=== PATIENT | female | born 1975 | race Caucasian/White ===

== ENCOUNTER → 2016-06-11 | Outpatient (CLI) | payer OTHER ==
[2016-06-11 13:06] LABS: HEMATOCRIT 44.2 % (36.0-47.0); HEMOGLOBIN 15.2 g/dL (12.0-15.5); HGB HCT DIFFERENCE 1.4; MEAN CORPUSCULAR HEMOGLOBIN 34.7 pg (27.0-33.4); MEAN CORPUSCULAR HGB CONC 34.3 g/dL (32.0-36.0); MEAN CORPUSCULAR VOLUME 101 fl (80-97); RED BLOOD COUNT 4.37 10^6/uL (3.72-5.28); RED CELL DISTRIBUTION WIDTH 14.1 % (11.5-14.0); WHITE BLOOD COUNT 7.7 10^3/uL (4.0-10.5)
[2016-06-11 13:10] LABS: APPEARANCE,URINE CLEAR; BILIRUBIN,URINE NEGATIVE (NEGATIVE); GLUCOSE, URINE NEGATIVE (NEGATIVE); KETONES,URINE NEGATIVE (NEGATIVE); LEUKOCYTE ESTERASE,URINE NEGATIVE (NEGATIVE); NITRITE,URINE NEGATIVE (NEGATIVE); PROTEIN,URINE NEGATIVE (NEGATIVE); URINE SPECIFIC GRAVITY 1.004; UROBILINOGEN,URINE NEGATIVE mg/dL (<2.0)
[2016-06-11 13:28] LABS: ANION GAP 11 (5-19); BLOOD UREA NITROGEN 9 mg/dL (7-20); CALCIUM 9.9 mg/dL (8.4-10.2); CARBON DIOXIDE 25 mmol/L (22-30); CHLORIDE 105 mmol/L (98-107); CREATININE RESULT 0.83 mg/dL (0.52-1.25); GLUCOSE 108 mg/dL (75-110); POTASSIUM 5.1 mmol/L (3.6-5.0); SODIUM 140.9 mmol/L (137-145)
--- NOTE | 2016-06-11 21:42 | EKG REPORT ---
SEVERITY:- NORMAL ECG - SINUS RHYTHM : Confirmed by: Anisa Chris 11-Jun-2016 21:42:12
== END ==
LOC: OD 12:26
PROVIDERS: ATTEND Orthopaedic Surgery
DX: Z01.818 Encounter for other preprocedural examination (principal); Z01.811 Encounter for preprocedural respiratory examination; M17.11 Unilateral primary osteoarthritis, right knee; Z79.899 Other long term (current) drug therapy
CPT/HCPCS: 36415; 71020; 80048; 81001; 85027; 93005; 93010

== ENCOUNTER 2016-07-07 08:02 | Inpatient (IN) | payer OTHER ==
[~2016-07-07 08:02] MED LIST: BUPIVACAINE INJ/PF LIPOSOME/PF 266 MG/20 ML SDV IJ PRN; CEFAZOLIN INJ 1 GM VIAL IV PRN; IBUPROFEN 800 MG/NS 250 ML IV PRN; LACTATED RINGERS 1000 ML IV PRN; LANSOPRAZOLE 15 MG TAB.RAP.DR PO PRN; LIDOCAINE 0.5% INJ-PF (5 MG/ML) 50 ML SDV SUBCUT PRN; OXYCODONE HCL SR 10 MG TABLET PO PRN; SCOPOLAMINE HYDROBROMIDE 1.5 MG PATCH.TD72 TOP PRN; VANCOMYCIN HCL 1,000 MG in DEXTROSE 5%-WATER 250 ML IV PRN
[2016-07-07] MEDS ORDERED: BUPIVACAINE INJ/PF LIPOSOME/PF 266 MG/20 ML SDV ONE (08:24)
[2016-07-07] MEDS ORDERED: THROMBIN (BOVINE) TOPICAL 20000 UNIT VIAL ONE (08:24)
[2016-07-07] MEDS ORDERED: THROMBIN (BOVINE) 5000 UNIT EPITAXIS KIT ONE (08:24)
[2016-07-07 08:50] LABS: PROTHROMBIN TIME 11.8 SEC (11.4-15.4)
[2016-07-07] MEDS ORDERED: DEXMEDETOMIDINE INJ 80 MCG/20 ML VIAL IV ONE (09:07)
[2016-07-07] MEDS ORDERED: TRANEXAMIC ACID INJ/PF 1,000 MG/10 ML SDV IV ONE (09:07)
[2016-07-07] MEDS ORDERED: FENTANYL CITRATE INJ/PF 100 MCG/2 ML AMPUL ONE (09:07)
[2016-07-07] MEDS ORDERED: MIDAZOLAM 2 MG/2 ML INJ ONE ×2 (09:07→10:27)
[2016-07-07] MEDS ORDERED: PROPOFOL INJ 200 MG/20 ML VIAL IV ONE (09:07)
[2016-07-07] MEDS ORDERED: PROMETHAZINE HCL INJ 25 MG/1 ML VIAL IV PRN ×2 (11:14)
[2016-07-07] MEDS ORDERED: OXYCODONE-ACETAMINOPHEN 5-325 MG TABLET PO PRN ×2 (11:14)
[2016-07-07] MEDS ORDERED: DIPHENHYDRAMINE HCL 50 MG/ML VIAL IV PRN (11:14)
[2016-07-07] MEDS ORDERED: MORPHINE SULFATE 10 MG/ML INJ IV PRN ×3 (11:14→12:07)
[2016-07-07] MEDS ORDERED: FENTANYL CITRATE INJ/PF 100 MCG/2 ML AMPUL IV PRN ×3 (11:14)
[2016-07-07] MEDS ORDERED: MEPERIDINE HCL/PF INJ 25 MG/1 ML DISP.SYRIN IV PRN (11:14)
[2016-07-07] MEDS ORDERED: ONDANSETRON HCL INJ/PF 4 MG/2 ML SDV IV PRN ×2 (11:14→12:07)
[2016-07-07] MEDS ORDERED: LORAZEPAM 1 MG TABLET PO PRN (12:05)
--- NOTE | 2016-07-07 12:05 | Operative Report ---
Operative Report DATE OF SURGERY: 07/07/16 PREOPERATIVE DIAGNOSIS: Right knee arthritis OPERATION: Right knee arthroplasty SURGEON: BLANCA JAMES ANESTHESIA: Spinal TISSUE REMOVED OR ALTERED: Bone to pathology ESTIMATED BLOOD LOSS: 100 PROCEDURE: Implants used: Femur: Striker triathlon #5 CR femur Tibia:, 4 tibia Tibial liner:, 11 millimeters CS insert Patella:, 32 mm oval patella Procedure with the patient supine on the operating table the right the limb is prepped and draped in a sterile fashion. The limb was elevated for exsanguination and the tourniquet inflated to 280 torr. A standard midline median parapatellar approach the knee is taken. Access is gained to the femoral canal through the intercondylar notch. Intramedullary alignment instrumentation used to resect 10 mm of distal femur in 5 of valgus. Sizing guide indicated a size 5 femur. Appropriate cutting jig is then used to fashion anterior posterior and chamfer cuts. A trial reduction femurs performed and this is judged to be adequate. Attention was next turned to the tibia. Using an extra medullary alignment system 9 millimeters was resected off the lateral tibial plateau. This is sized to a size for tibia. A trial reduction was now performed with a 5 femur and a 4 tibia using a 11 millimeters spacer. It is full extension and central patellofemoral tracking. The articular surface the patella was next resected using an oscillating saw. All trial implants were removed. Polymethylmethacrylate is mixed and used to cement the above implants in place. On adequate curing the cement excess cement was removed the tourniquet was deflated hemostasis obtained the wound is then closed in layers using interrupted Vicryl followed by fifi. A sterile compressive dressing was applied and the patient returned to recovery room in satisfactory condition.
[2016-07-07] MEDS ORDERED: ZOLPIDEM TARTRATE 5 MG TABLET PO PRN (12:07)
[2016-07-07] MEDS ORDERED: ONDANSETRON 4 MG TAB.RAPDIS PO PRN (12:07)
[2016-07-07] MEDS ORDERED: MAG HYDROX/AL HYDROX/SIMETH SUSP 30 ML UDCUP PO PRN (12:07)
[2016-07-07] MEDS ORDERED: MORPHINE SULFATE 10 MG/ML INJ IM PRN (12:07)
[2016-07-07] MEDS ORDERED: RINGERS SOLUTION,LACTATED 1,000 ML IV PRN (12:07)
[2016-07-07] MEDS ORDERED: ACETAMINOPHEN 325 MG TABLET PO PRN (12:07)
[2016-07-07] MEDS ORDERED: LIDOCAINE 2% INJ-PF (20 MG/ML) 10 ML AMPUL ONE (13:29)
[2016-07-07] MEDS ORDERED: GLYCOPYRROLATE INJ 0.4 MG/2 ML VIAL ONE (13:29)
[2016-07-07] MEDS ORDERED: ENOXAPARIN SODIUM INJ 120 MG/0.8 ML DISP.SYRIN SUBCUT ONE (14:00)
[2016-07-07] MEDS ORDERED: IBUPROFEN 800 MG in NORMAL SALINE 250 ML IV SCH (14:00)
[2016-07-07] MEDS ORDERED: PRENATAL VITAMIN W-O CA NO5/FE FUMARATE/FA CAPSULE PO ONE (14:00)
[2016-07-07] MEDS: OXYCODONE HCL IR 5 MG TABLET PO PRN (15:46)
[2016-07-07] MEDS: MORPHINE SULFATE 10 MG/ML INJ IV PRN ×5 (16:58→23:37)
[2016-07-07] MEDS: SERTRALINE HCL 50 MG TABLET PO SCH (17:10)
[2016-07-07] MEDS: LAMOTRIGINE 100 MG TABLET PO SCH (17:10)
[2016-07-07] MEDS: SENNOSIDES/DOCUSATE 8.6-50 MG 1 EACH TABLET PO SCH (17:11)
[2016-07-07] MEDS: IBUPROFEN 800 MG in NORMAL SALINE 250 ML IV SCH (17:11)
[2016-07-07] MEDS: CETIRIZINE 10 MG TABLET PO SCH (17:11)
[2016-07-07] MEDS ORDERED: (PENDING PHARMACY ID) (Lamotrigine [Lamictal] 200 MG) PO SCH (18:00)
[2016-07-07] MEDS: WARFARIN SODIUM 4 MG TABLET PO SCH (21:58)
[2016-07-07] MEDS ORDERED: ENOXAPARIN SODIUM INJ 120 MG/0.8 ML DISP.SYRIN SUBCUT SCH (22:00)
[2016-07-07] MEDS ORDERED: ENOXAPARIN SODIUM 120 MG SUBCUT SCH (22:00)
[2016-07-07] MEDS ORDERED: OXYCODONE HCL SR 10 MG TABLET PO SCH (22:00)
[2016-07-08] MEDS ORDERED: VANCOMYCIN HCL 1,000 MG in DEXTROSE 5%-WATER 250 ML IV ONE (00:07)
[2016-07-08] MEDS: IBUPROFEN 800 MG in NORMAL SALINE 250 ML IV SCH ×3 (01:23→18:57)
[2016-07-08] MEDS: MORPHINE SULFATE 10 MG/ML INJ IV PRN ×2 (01:26→03:03)
[2016-07-08] MEDS: DIPHENHYDRAMINE HCL 50 MG/ML VIAL IV PRN ×3 (03:03→21:48)
[2016-07-08] MEDS: ENOXAPARIN SODIUM INJ 120 MG/0.8 ML DISP.SYRIN SUBCUT SCH ×2 (06:00→19:02)
[2016-07-08] MEDS: LANSOPRAZOLE 30 MG TAB.RAP.DR PO SCH (06:00)
[2016-07-08 06:34] LABS: HEMATOCRIT 35.8 % (36.0-47.0); HEMOGLOBIN 12.4 g/dL (12.0-15.5); HGB HCT DIFFERENCE 1.4; MEAN CORPUSCULAR HEMOGLOBIN 34.5 pg (27.0-33.4); MEAN CORPUSCULAR HGB CONC 34.5 g/dL (32.0-36.0); MEAN CORPUSCULAR VOLUME 100 fl (80-97); RED BLOOD COUNT 3.58 10^6/uL (3.72-5.28); RED CELL DISTRIBUTION WIDTH 13.6 % (11.5-14.0); WHITE BLOOD COUNT 9.8 10^3/uL (4.0-10.5)
[2016-07-08 06:40] LABS: PROTHROMBIN TIME 12.6 SEC (11.4-15.4)
[2016-07-08 06:41] LABS: PARTIAL THROMBOPLASTIN TIME 32.4 SEC (23.5-35.8)
[2016-07-08 06:53] LABS: ANION GAP 9 (5-19); BLOOD UREA NITROGEN 8 mg/dL (7-20); CARBON DIOXIDE 25 mmol/L (22-30); CHLORIDE 100 mmol/L (98-107); CREATININE RESULT 0.63 mg/dL (0.52-1.25); GLUCOSE 103 mg/dL (75-110); POTASSIUM 4.3 mmol/L (3.6-5.0); SODIUM 133.7 mmol/L (137-145)
[2016-07-08] MEDS: OXYCODONE HCL SR 40 MG TABLET PO SCH ×2 (09:55→21:48)
[2016-07-08] MEDS: SENNOSIDES/DOCUSATE 8.6-50 MG 1 EACH TABLET PO SCH ×2 (09:56→19:01)
[2016-07-08] MEDS: PRENATAL VITAMIN W-O CA NO5/FE FUMARATE/FA CAPSULE PO SCH (09:56)
[2016-07-08] MEDS ORDERED: (PENDING PHARMACY ID) (Warfarin Sodium 4 MG) PO SCH (10:00)
[2016-07-08] MEDS: OXYCODONE HCL IR 5 MG TABLET PO PRN (14:41)
[2016-07-08] MEDS: SERTRALINE HCL 50 MG TABLET PO SCH (18:56)
[2016-07-08] MEDS: LAMOTRIGINE 100 MG TABLET PO SCH (18:56)
[2016-07-08] MEDS: CETIRIZINE 10 MG TABLET PO SCH (18:57)
[2016-07-08] MEDS: WARFARIN SODIUM 4 MG TABLET PO SCH (21:48)
[2016-07-09] MEDS: IBUPROFEN 800 MG in NORMAL SALINE 250 ML IV SCH ×2 (03:27→09:43)
[2016-07-09 05:41] LABS: HEMATOCRIT 35.2 % (36.0-47.0); HEMOGLOBIN 11.9 g/dL (12.0-15.5); HGB HCT DIFFERENCE 0.5; MEAN CORPUSCULAR HEMOGLOBIN 34.3 pg (27.0-33.4); MEAN CORPUSCULAR HGB CONC 33.7 g/dL (32.0-36.0); MEAN CORPUSCULAR VOLUME 102 fl (80-97); RED BLOOD COUNT 3.46 10^6/uL (3.72-5.28); RED CELL DISTRIBUTION WIDTH 13.7 % (11.5-14.0); WHITE BLOOD COUNT 9.8 10^3/uL (4.0-10.5)
[2016-07-09 05:46] LABS: PROTHROMBIN TIME 14.2 SEC (11.4-15.4)
[2016-07-09 05:47] LABS: PARTIAL THROMBOPLASTIN TIME 38.2 SEC (23.5-35.8)
[2016-07-09] MEDS: ENOXAPARIN SODIUM INJ 120 MG/0.8 ML DISP.SYRIN SUBCUT SCH (06:06)
[2016-07-09] MEDS: LANSOPRAZOLE 30 MG TAB.RAP.DR PO SCH (06:06)
[2016-07-09] MEDS: OXYCODONE HCL IR 5 MG TABLET PO PRN (06:07)
[2016-07-09] MEDS: DIPHENHYDRAMINE HCL 50 MG/ML VIAL IV PRN (06:21)
--- NOTE | 2016-07-09 07:20 | PDOC DISCHARGE SUMMARY ---
General - Admit/Disc Date/PCP Admission Date/Primary Care Provider: 07/07/16 08:02 KENDAL WEINBERG MD Discharge Date: 07/09/16 - Discharge Diagnosis (1) Arthritis of right knee Is this a current diagnosis for this admission?: Yes - Additional Information Resuscitation Status: Full Code Discharge Diet: As Tolerated, Regular Discharge Activity: Activity As Tolerated, Balance Activity w/Rest Home Medications: Sertraline HCl [Zoloft 50 mg Tablet] 100 mg PO QPM 12/17/11 Cetirizine HCl [Zyrtec 10 mg Tablet] 1 tab PO QPM 06/13/14 Warfarin Sodium 4 - 5 mg PO DAILY 06/13/14 Ibuprofen [Motrin 600 mg Tablet] 600 mg PO Q8HP PRN 06/14/14 Diclofenac Sodium [Pennsaid] 112 gm TP QPM 06/25/16 Lamotrigine [Lamictal] 200 mg PO QPM 06/25/16 Lorazepam [Ativan 1 mg Tablet] 1 mg PO ASDIR PRN 06/25/16 Tramadol HCl 50 mg PO QPM PRN 06/25/16 Enoxaparin Sodium [Lovenox Inj 120 mg/0.8 ml Disp.syrin] 120 mg SUBCUT Q12 07/01 Acetaminophen [Tylenol 325 mg Tablet] 650 mg PO Q4HP PRN #0 tablet 07/09/16 Oxycodone HCl [Oxy-Ir 5 mg Tablet] 5 mg PO Q6HP PRN #0 tablet 07/09/16 Pnv W-O Ca No5/Fe Fumarate/FA [-U Multiple Vitamin Capsule] 1 cap PO DAILY #0 capsule 07/09/16 History of Present Illness History of Present Illness: MACEY FUENTES is a 40 year old female who presented with progressive bilateral knee pain and functional disability. Osteoarthritis. Right knee was more affected than the left. She is now admitted for elective right knee arthroplasty Hospital Course Hospital Course: Patient's admitted through the operating room where she undergoes uncomplicated right knee arthroplasty. 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 She has a slow start with physical therapy because of pain control. By postop day 2. The pain control seems to be better. She is making excellent progress with physical therapy. The shawn dressing is changed. Physical Exam Vital Signs: Temp Pulse Resp BP Pulse Ox 37.1 C 77 19 113/69 96 07/08/16 23:00 07/08/16 23:00 07/08/16 23:00 07/08/16 23:00 07/08/16 23:00 Intake & Output 07/08/16 07/09/16 07/10/16 06:59 06:59 06:59 Intake Total 5018 2130 Output Total 3450 1000 Balance 1568 1130 General appearance: PRESENT: no acute distress, obese Head exam: PRESENT: normocephalic Eye exam: PRESENT: EOMI Respiratory exam: PRESENT: unlabored Cardiovascular exam: PRESENT: RRR Pulses: PRESENT: +1 pedal pulses bilateral Vascular exam: PRESENT: normal capillary refill GI/Abdominal exam: PRESENT: soft Rectal exam: PRESENT: deferred Extremities exam: PRESENT: other - Right knee incision is well approximated. There is no erythema. There is no drainage. Distal neurovascular examination is intact. Neurological exam: PRESENT: alert, awake, oriented to person, oriented to place , oriented to time, oriented to situation. ABSENT: motor sensory deficit Psychiatric exam: PRESENT: appropriate affect, normal mood. ABSENT: homicidal ideation, suicidal ideation Skin exam: PRESENT: dry, intact, warm. ABSENT: cyanosis, rash Results Laboratory Results: 07/09/16 05:13 07/08/16 05:50 07/09/16 05:13 WBC 9.8 RBC 3.46 L Hgb 11.9 L Hct 35.2 L MCV 102 H MCH 34.3 H MCHC 33.7 RDW 13.7 Plt Count 166 Impressions: Knee X-Ray 07/07/16 12:08 IMPRESSION: SATISFACTORY POSTOPERATIVE RIGHT KNEE. Status: Imported from PACS Plan Discharge Plan: Patient be discharged home with home health senior living health physical therapy , we'll Walker, bedside commode. Patient will follow Dr. Fitzgerald for the transition between Lovenox and Coumadin. Patient will have the shawn dressing changed on Thursday the by home health nursing. Follow-up will be with Dr. Arreola in the [facility] for surgery in 2 weeks for staple removal.
[2016-07-09] MEDS: OXYCODONE HCL SR 40 MG TABLET PO SCH (09:42)
[2016-07-09] MEDS: SENNOSIDES/DOCUSATE 8.6-50 MG 1 EACH TABLET PO SCH (09:42)
[2016-07-09] MEDS: PRENATAL VITAMIN W-O CA NO5/FE FUMARATE/FA CAPSULE PO SCH (09:42)
[2016-07-09 10:39] VITALS: BP 113/69
== END 2016-07-09 12:30 | disposition home health service (06) | DRG 470 ==
LOC: INOR 08:02 → 4S 13:27
PROVIDERS: ADMIT Orthopaedic Surgery; ATTEND Orthopaedic Surgery
PROC: 0SRC0J9 Replacement of Right Knee Joint with Synthetic Substitute, Cemented, Open Approach (ICD-10-PCS; principal; 2016-07-07 10:00)
DX: M17.11 Unilateral primary osteoarthritis, right knee (principal); D68.59 Other primary thrombophilia; F41.9 Anxiety disorder, unspecified; D50.9 Iron deficiency anemia, unspecified; D51.9 Vitamin B12 deficiency anemia, unspecified; F17.200 Nicotine dependence, unspecified, uncomplicated; Z86.711 Personal history of pulmonary embolism; Z79.899 Other long term (current) drug therapy; Z90.710 Acquired absence of both cervix and uterus; Z98.84 Bariatric surgery status; Z82.49 Family history of ischemic heart disease and other diseases of the circulatory system; Z79.01 Long term (current) use of anticoagulants; Z80.3 Family history of malignant neoplasm of breast; Z90.49 Acquired absence of other specified parts of digestive tract; Z98.51 Tubal ligation status
CPT/HCPCS: 01402; 36415; 80048; 85027; 85610; 85730; 88305; 88311; 94799; C9290; J0690; J1200; J1650; J1741; J2250; J2270; J2405; J2704; J3010; J3370; J3490; J7050; J7060

== ENCOUNTER → 2016-09-01 | Outpatient (CLI) | payer OTHER | LOC: WI 09:24 | PROVIDERS: ATTEND Surgery | DX: Z12.31 Encounter for screening mammogram for malignant neoplasm of breast (principal) | CPT/HCPCS: 77067; G0202 ==

== ENCOUNTER → 2016-10-16 | Outpatient (CLI) | payer OTHER ==
--- NOTE | 2016-10-16 11:45 | RADIOLOGY REPORT (SQ) ---
EXAM DESCRIPTION: CHEST PA/LATERAL COMPLETED DATE/TIME: 10/16/2016 11:31 am REASON FOR STUDY: PRE OP COMPARISON: CT chest 08/10/2014 EXAM PARAMETERS: NUMBER OF VIEWS: two views TECHNIQUE: Digital Frontal and Lateral radiographic views of the chest acquired. RADIATION DOSE: NA LIMITATIONS: none FINDINGS: LUNGS AND PLEURA: No opacities, masses or pneumothorax. No pleural effusion. MEDIASTINUM AND HILAR STRUCTURES: No masses or contour abnormalities. HEART AND VASCULAR STRUCTURES: Heart normal size. No evidence for failure. BONES: No acute findings. HARDWARE: Clips right upper quadrant post cholecystectomy. Left upper quadrant clips post gastric by pass OTHER: No other significant finding. IMPRESSION: NO SIGNIFICANT RADIOGRAPHIC FINDING IN THE CHEST. TECHNICAL DOCUMENTATION: JOB ID: [id number] [employer]- All Rights Reserved
[2016-10-16 11:48] LABS: ABSOLUTE BASOPHILS # (AUTO) 0.1 10^3/uL (0.0-0.2); ABSOLUTE EOSINOPHILS # (AUTO) 0.3 10^3/uL (0.0-0.6); ABSOLUTE LYMPHOCYTES (AUTO) 3.5 10^3/uL (0.5-4.7); ABSOLUTE MONOCYTES (AUTO) 0.5 10^3/uL (0.1-1.4); ABSOLUTE NEUT (AUTO) 3.7 10^3/uL (1.7-8.2); BASOPHILS % (AUTO) 0.7 % (0-2); EOSINOPHILS % (AUTO) 3.2 % (0-6); HEMATOCRIT 44.9 % (36.0-47.0); HEMOGLOBIN 14.7 g/dL (12.0-15.5); HGB HCT DIFFERENCE -0.8; LYMPHOCYTES % (AUTO) 43.7 % (13-45); MEAN CORPUSCULAR HEMOGLOBIN 33.3 pg (27.0-33.4); MEAN CORPUSCULAR HGB CONC 32.7 g/dL (32.0-36.0); MEAN CORPUSCULAR VOLUME 102 fl (80-97); MONOCYTES % (AUTO) 5.9 % (3-13); RED BLOOD COUNT 4.41 10^6/uL (3.72-5.28); RED CELL DISTRIBUTION WIDTH 13.9 % (11.5-14.0); SEGMENTED NEUTROPHILS % (AUTO) 46.5 % (42-78)
[2016-10-16 11:49] LABS: APPEARANCE,URINE CLEAR; BILIRUBIN,URINE NEGATIVE (NEGATIVE); GLUCOSE, URINE NEGATIVE (NEGATIVE); KETONES,URINE NEGATIVE (NEGATIVE); LEUKOCYTE ESTERASE,URINE NEGATIVE (NEGATIVE); NITRITE,URINE NEGATIVE (NEGATIVE); PROTEIN,URINE NEGATIVE (NEGATIVE); URINE SPECIFIC GRAVITY 1.004; UROBILINOGEN,URINE NEGATIVE mg/dL (<2.0)
[2016-10-16 12:13] LABS: ANION GAP 12 (5-19); BLOOD UREA NITROGEN 10 mg/dL (7-20); CALCIUM 9.6 mg/dL (8.4-10.2); CARBON DIOXIDE 22 mmol/L (22-30); CHLORIDE 104 mmol/L (98-107); CREATININE RESULT 0.79 mg/dL (0.52-1.25); GLUCOSE 90 mg/dL (75-110); POTASSIUM 4.9 mmol/L (3.6-5.0); SODIUM 138.4 mmol/L (137-145)
--- NOTE | 2016-10-17 03:57 | EKG REPORT ---
SEVERITY:- NORMAL ECG - SINUS RHYTHM : Confirmed by: Laverne Hernandez MD 17-Oct-2016 03:56:23
== END ==
LOC: OD 10:40
PROVIDERS: ATTEND Orthopaedic Surgery
DX: Z01.818 Encounter for other preprocedural examination (principal); M17.11 Unilateral primary osteoarthritis, right knee
CPT/HCPCS: 36415; 71020; 80048; 81001; 85025; 93005; 93010

== ENCOUNTER 2016-11-10 09:06 | Inpatient (IN) | payer OTHER ==
[~2016-11-10 09:06] MED LIST changes: +CEFAZOLIN INJ 1 GM VIAL INJ PRN; -CEFAZOLIN INJ 1 GM VIAL IV PRN; -SCOPOLAMINE HYDROBROMIDE 1.5 MG PATCH.TD72 TOP PRN
[2016-11-10] MEDS ORDERED: THROMBIN (BOVINE) TOPICAL 20000 UNIT VIAL ONE (09:32)
[2016-11-10] MEDS ORDERED: THROMBIN (BOVINE) 5000 UNIT EPITAXIS KIT ONE (09:32)
[2016-11-10] MEDS ORDERED: BUPIVACAINE INJ/PF LIPOSOME/PF 266 MG/20 ML SDV ONE (09:33)
[2016-11-10 09:35] LABS: PARTIAL THROMBOPLASTIN TIME 27.8 SEC (23.5-35.8)
[2016-11-10] MEDS ORDERED: LORAZEPAM INJ 2 MG/1 ML VIAL ONE (11:26)
[2016-11-10] MEDS ORDERED: MIDAZOLAM 2 MG/2 ML INJ ONE ×2 (11:57→13:11)
[2016-11-10] MEDS ORDERED: FENTANYL CITRATE INJ/PF 100 MCG/2 ML AMPUL ONE (11:57)
[2016-11-10] MEDS ORDERED: ACETAMINOPHEN 100 ML IV ONE (11:58)
[2016-11-10] MEDS ORDERED: PROPOFOL INJ 200 MG/20 ML VIAL IV ONE (11:58)
[2016-11-10] MEDS ORDERED: TRANEXAMIC ACID INJ/PF 1,000 MG/10 ML SDV IV ONE ×2 (11:58→17:00)
[2016-11-10] MEDS ORDERED: ONDANSETRON HCL INJ/PF 4 MG/2 ML SDV IV PRN ×2 (13:37→14:10)
[2016-11-10] MEDS ORDERED: OXYCODONE-ACETAMINOPHEN 5-325 MG TABLET PO PRN ×2 (13:37)
[2016-11-10] MEDS ORDERED: MEPERIDINE HCL/PF INJ 25 MG/1 ML DISP.SYRIN IV PRN (13:37)
[2016-11-10] MEDS ORDERED: FENTANYL CITRATE INJ/PF 100 MCG/2 ML AMPUL IV PRN ×3 (13:37)
[2016-11-10] MEDS ORDERED: DIPHENHYDRAMINE HCL 50 MG/ML VIAL IV PRN (13:37)
[2016-11-10] MEDS ORDERED: MORPHINE SULFATE 10 MG/ML INJ IV PRN ×3 (13:37→14:10)
[2016-11-10] MEDS ORDERED: PROMETHAZINE HCL INJ 25 MG/1 ML VIAL IV PRN ×2 (13:37)
[2016-11-10] MEDS ORDERED: LORAZEPAM 1 MG TABLET PO PRN (14:09)
--- NOTE | 2016-11-10 14:09 | Operative Report ---
Operative Report DATE OF SURGERY: 11/10/16 PREOPERATIVE DIAGNOSIS: Left knee arthritis OPERATION: Left knee arthroplasty SURGEON: BLANCA JAMES ANESTHESIA: Spinal TISSUE REMOVED OR ALTERED: Bone to pathology ESTIMATED BLOOD LOSS: 100 PROCEDURE: Implants used: Femur: Triathlon #5 CR femur Tibia: 4 tibia Tibial liner: 11 mm CS insert Patella: 32 Millimeter oval patella Procedure with the patient supine on the operating table the left the limb is prepped and draped in a sterile fashion. The limb was elevated for exsanguination and the tourniquet inflated to 280 torr. A standard midline median parapatellar approach the knee is taken. Access is gained to the femoral canal through the intercondylar notch. Intramedullary alignment instrumentation used to resect 10 mm of distal femur in 5 of valgus. Sizing guide indicated a size 5 femur. Appropriate cutting jig is then used to fashion anterior posterior and chamfer cuts. A trial reduction femurs performed and this is judged to be adequate. Attention was next turned to the tibia. Using an extra medullary alignment system 9 millimeters was resected off the lateral tibial plateau. This is sized to a size 4 tibia. A trial reduction was now performed with a 5 femur and a 4 tibia using a 11 millimeters spacer. It is full extension and central patellofemoral tracking. The articular surface the patella was next resected using an oscillating saw. All trial implants were removed. Polymethylmethacrylate is mixed and used to cement the above implants in place. On adequate curing the cement excess cement was removed the tourniquet was deflated hemostasis obtained the wound is then closed in layers using interrupted Vicryl followed by fifi. A sterile compressive dressing was applied and the patient returned to recovery room in satisfactory condition.
[2016-11-10] MEDS ORDERED: MORPHINE SULFATE 10 MG/ML INJ IM PRN (14:10)
[2016-11-10] MEDS ORDERED: ACETAMINOPHEN 325 MG TABLET PO PRN (14:10)
[2016-11-10] MEDS ORDERED: MAG HYDROX/AL HYDROX/SIMETH SUSP 30 ML UDCUP PO PRN (14:10)
[2016-11-10] MEDS ORDERED: ZOLPIDEM TARTRATE 5 MG TABLET PO PRN (14:10)
[2016-11-10] MEDS ORDERED: ONDANSETRON 4 MG TAB.RAPDIS PO PRN (14:10)
--- NOTE | 2016-11-10 15:13 | RADIOLOGY REPORT (SQ) ---
EXAM DESCRIPTION: KNEE LEFT 2 VIEWS COMPLETED DATE/TIME: 11/10/2016 3:01 pm REASON FOR STUDY: Post OP -Long Cassette in PACU M17.12 UNILATERAL PRIMARY OSTEOARTHRITIS, LEFT KNE E COMPARISON: None. NUMBER OF VIEWS: AP and lateral portable films TECHNIQUE: Digital radiographic images of the left knee post-procedure. LIMITATIONS: None. FINDINGS: BONES: No worrisome or unexpected findings post-procedure. DEVICE: Left total knee replacement with patellar resurfacing SOFT TISSUES: No worrisome findings. Expected postoperative soft tissue changes. IMPRESSION: SATISFACTORY POSTOPERATIVE LEFT KNEE. TECHNICAL DOCUMENTATION: JOB ID: [id number] [employer]- All Rights Reserved
[2016-11-10] MEDS: OXYCODONE HCL IR 5 MG TABLET PO PRN (17:17)
[2016-11-10] MEDS: SENNOSIDES/DOCUSATE 8.6-50 MG 1 EACH TABLET PO SCH (17:17)
[2016-11-10] MEDS: SERTRALINE HCL 50 MG TABLET PO SCH (17:18)
[2016-11-10] MEDS: LAMOTRIGINE 100 MG TABLET PO SCH (17:18)
[2016-11-10] MEDS ORDERED: (PENDING PHARMACY ID) (Lamotrigine [Lamictal] 200 MG) PO SCH (18:00)
[2016-11-10] MEDS: MORPHINE SULFATE 10 MG/ML INJ IV PRN ×2 (18:10→21:51)
[2016-11-10] MEDS: OXYCODONE HCL SR 10 MG TABLET PO SCH (21:19)
[2016-11-10] MEDS: ENOXAPARIN SODIUM INJ 120 MG/0.8 ML DISP.SYRIN SUBCUT SCH (21:19)
[2016-11-10] MEDS: WARFARIN SODIUM 5 MG TABLET PO SCH (21:19)
[2016-11-10] MEDS: IBUPROFEN 800 MG in NORMAL SALINE 250 ML IV SCH (21:20)
[2016-11-10] MEDS ORDERED: (PENDING PHARMACY ID) (Warfarin Sodium 5 MG) PO SCH (22:00)
[2016-11-10] MEDS ORDERED: ENOXAPARIN SODIUM 120 MG SUBCUT SCH (22:00)
[2016-11-11] MEDS: MORPHINE SULFATE 10 MG/ML INJ IV PRN ×4 (00:15→20:19)
[2016-11-11] MEDS: DIPHENHYDRAMINE HCL 50 MG/ML VIAL IV PRN ×2 (00:16→20:21)
[2016-11-11] MEDS ORDERED: VANCOMYCIN HCL 1,000 MG in DEXTROSE 5%-WATER 250 ML IV ONE (02:00)
[2016-11-11] MEDS: IBUPROFEN 800 MG in NORMAL SALINE 250 ML IV SCH ×3 (05:42→21:52)
[2016-11-11] MEDS: LANSOPRAZOLE 30 MG TAB.RAP.DR PO SCH (05:43)
[2016-11-11 07:07] LABS: HEMATOCRIT 39.4 % (36.0-47.0); HEMOGLOBIN 12.9 g/dL (12.0-15.5); HGB HCT DIFFERENCE -0.7; MEAN CORPUSCULAR HGB CONC 32.6 g/dL (32.0-36.0); MEAN CORPUSCULAR VOLUME 104 fl (80-97); RED BLOOD COUNT 3.79 10^6/uL (3.72-5.28); RED CELL DISTRIBUTION WIDTH 14.2 % (11.5-14.0); WHITE BLOOD COUNT 8.5 10^3/uL (4.0-10.5)
--- NOTE | 2016-11-11 07:16 | PDOC PROGRESS REPORT ---
Subjective Progress Note for:: 11/11/16 Subjective:: Patient complains of inadequate pain control Physical Exam Vital Signs: Temp Pulse Resp BP Pulse Ox 36.6 C 60 17 107/68 94 11/11/16 03:08 11/11/16 03:08 11/11/16 03:08 11/11/16 03:08 11/11/16 03:08 Intake & Output 11/10/16 11/11/16 11/12/16 06:59 06:59 06:59 Intake Total 5758 Output Total 4165 Balance 1593 Weight 114.8 kg General appearance: PRESENT: mild distress, obese Head exam: PRESENT: normocephalic Eye exam: PRESENT: EOMI Respiratory exam: PRESENT: unlabored Cardiovascular exam: PRESENT: RRR Pulses: PRESENT: +1 pedal pulses bilateral Vascular exam: PRESENT: normal capillary refill GI/Abdominal exam: PRESENT: soft Rectal exam: PRESENT: deferred Extremities exam: PRESENT: other - Lower extremity dressing clean dry and intact. Vascular examination is intact. Neurological exam: PRESENT: alert, awake, oriented to person, oriented to place , oriented to time, oriented to situation, CN II-XII grossly intact. ABSENT: motor sensory deficit Psychiatric exam: PRESENT: appropriate affect, normal mood. ABSENT: homicidal ideation, suicidal ideation Skin exam: PRESENT: dry, intact, warm. ABSENT: cyanosis, rash Results Laboratory Results: 11/11/16 06:32 11/11/16 06:32 WBC 8.5 RBC 3.79 Hgb 12.9 Hct 39.4 MCV 104 H MCH 34.0 H MCHC 32.6 RDW 14.2 H Plt Count 149 L Impressions: Knee X-Ray 11/10/16 14:12 IMPRESSION: SATISFACTORY POSTOPERATIVE LEFT KNEE. Status: Imported from PACS Assessment & Plan - Diagnosis (1) Arthritis of knee, left Is this a current diagnosis for this admission?: YesPlan: 41-year-old white female postop day 1 from left knee arthroplasty with pain control. Plan will be to increase OxyContin to 40 mg p.o. twice daily. There is minimal progress with physical therapy yesterday. Plan for weightbearing as tolerated ambulation today. - Time Time Spent with patient: 15-24 minutes Anticipated discharge: Home with Homehealth Within: within 24 hours
[2016-11-11 07:34] LABS: ANION GAP 5 (5-19); BLOOD UREA NITROGEN 6 mg/dL (7-20); CALCIUM 8.7 mg/dL (8.4-10.2); CARBON DIOXIDE 27 mmol/L (22-30); CHLORIDE 105 mmol/L (98-107); CREATININE RESULT 0.79 mg/dL (0.52-1.25); GLUCOSE 115 mg/dL (75-110); SODIUM 137.1 mmol/L (137-145)
[2016-11-11] MEDS: PRENATAL VITAMIN W-O CA NO5/FE FUMARATE/FA CAPSULE PO SCH (09:59)
[2016-11-11] MEDS: SENNOSIDES/DOCUSATE 8.6-50 MG 1 EACH TABLET PO SCH ×2 (09:59→17:05)
[2016-11-11] MEDS: OXYCODONE HCL SR 10 MG TABLET PO SCH (10:00)
[2016-11-11] MEDS ORDERED: (PENDING PHARMACY ID) (Warfarin Sodium 5 MG) PO SCH (10:00)
[2016-11-11] MEDS: ENOXAPARIN SODIUM INJ 120 MG/0.8 ML DISP.SYRIN SUBCUT SCH ×2 (10:03→21:52)
[2016-11-11] MEDS: OXYCODONE HCL IR 5 MG TABLET PO PRN (11:50)
[2016-11-11] MEDS: LAMOTRIGINE 100 MG TABLET PO SCH (17:05)
[2016-11-11] MEDS: SERTRALINE HCL 50 MG TABLET PO SCH (17:05)
[2016-11-11] MEDS: OXYCODONE HCL SR 40 MG TABLET PO SCH (21:52)
[2016-11-11] MEDS: WARFARIN SODIUM 5 MG TABLET PO SCH (21:52)
[2016-11-12] MEDS: DIPHENHYDRAMINE HCL 50 MG/ML VIAL IV PRN (03:05)
[2016-11-12] MEDS: LANSOPRAZOLE 30 MG TAB.RAP.DR PO SCH (06:11)
[2016-11-12] MEDS: IBUPROFEN 800 MG in NORMAL SALINE 250 ML IV SCH (06:11)
[2016-11-12 06:34] LABS: HEMATOCRIT 36.5 % (36.0-47.0); HEMOGLOBIN 12.1 g/dL (12.0-15.5); HGB HCT DIFFERENCE -0.2; MEAN CORPUSCULAR HEMOGLOBIN 33.7 pg (27.0-33.4); MEAN CORPUSCULAR HGB CONC 33.1 g/dL (32.0-36.0); MEAN CORPUSCULAR VOLUME 102 fl (80-97); RED BLOOD COUNT 3.59 10^6/uL (3.72-5.28); WHITE BLOOD COUNT 7.4 10^3/uL (4.0-10.5)
--- NOTE | 2016-11-12 07:22 | PDOC DISCHARGE SUMMARY ---
General - Admit/Disc Date/PCP Admission Date/Primary Care Provider: 11/10/16 09:06 PEARL MILLAN NP Discharge Date: 11/12/16 - Discharge Diagnosis (1) Arthritis of knee, left Is this a current diagnosis for this admission?: Yes - Additional Information Resuscitation Status: Full Code Discharge Diet: As Tolerated, Regular Discharge Activity: Balance Activity w/Rest, No Driving, No tub bath Home Medications: Sertraline HCl [Zoloft 50 mg Tablet] 100 mg PO QPM 12/17/11 Cetirizine HCl [Zyrtec 10 mg Tablet] 10 mg PO QPM 06/13/14 Warfarin Sodium 4 mg PO SUSA@2200 06/13/14 Ibuprofen [Motrin 600 mg Tablet] 600 mg PO Q8HP PRN 06/14/14 Lamotrigine [Lamictal] 200 mg PO QPM 06/25/16 Lorazepam [Ativan 1 mg Tablet] 1 mg PO BIDP PRN 06/25/16 Enoxaparin Sodium [Lovenox Inj 120 mg/0.8 ml Disp.syrin] 120 mg SUBCUT Q12 07/01 Acetaminophen [Tylenol 325 mg Tablet] 650 mg PO Q4HP PRN #0 tablet 07/09/16 Omeprazole 40 mg PO DAILY 11/10/16 Warfarin Sodium [Coumadin 5 mg Tablet] 5 mg PO MOTUWETHFR@219911/10/16 Oxycodone HCl [Oxy-Ir 5 mg Tablet] 5 mg PO Q6HP PRN #0 tablet 11/12/16 History of Present Illness History of Present Illness: MACEY FUENTES is a 41 year old female to have left knee pain and functional disability secondary osteoarthritis. Different elective left knee arthroplasty. Hospital Course Hospital Course: Is admitted through the operating room where she undergoes uncomplicated left knee arthroplasty. She is returned to the floor in satisfactory condition. Postoperative issues with appropriate analgesia otherwise the patient makes slow steady progress with physical therapy. Hematocrit remains above 36%. Picot dressing remains clean dry and intact. Physical Exam Vital Signs: Temp Pulse Resp BP Pulse Ox 36.9 C 73 16 113/60 95 11/11/16 23:25 11/11/16 23:25 11/11/16 23:25 11/11/16 23:25 11/11/16 23:25 Intake & Output 11/11/16 11/12/16 11/13/16 06:59 06:59 06:59 Intake Total 5758 1721 Output Total 4165 Balance 1593 1721 Weight 114.8 kg General appearance: PRESENT: mild distress, obese Head exam: PRESENT: normocephalic Eye exam: PRESENT: EOMI Respiratory exam: PRESENT: unlabored Cardiovascular exam: PRESENT: RRR Pulses: PRESENT: +1 pedal pulses bilateral Vascular exam: PRESENT: normal capillary refill GI/Abdominal exam: PRESENT: soft Rectal exam: PRESENT: deferred Extremities exam: PRESENT: other - Left knee picot dressing remains clean dry and intact. There is minimal pedal edema. Distal neurovascular examination is intact. Neurological exam: PRESENT: alert, awake, oriented to person, oriented to place , oriented to time, oriented to situation. ABSENT: motor sensory deficit Psychiatric exam: PRESENT: appropriate affect, normal mood. ABSENT: homicidal ideation, suicidal ideation Skin exam: PRESENT: dry, intact, warm. ABSENT: cyanosis, rash Results Laboratory Results: 11/12/16 05:09 11/11/16 06:32 11/11/16 11/12/16 06:32 05:09 WBC 7.4 RBC 3.59 L Hgb 12.1 Hct 36.5 MCV 102 H MCH 33.7 H MCHC 33.1 RDW 14.0 Plt Count 143 L Sodium 137.1 Potassium 5.0 Chloride 105 Carbon Dioxide 27 Anion Gap 5 BUN 6 L Creatinine 0.79 Est GFR ( Amer) > 60 Est GFR (Non-Af Amer) > 60 Glucose 115 H Calcium 8.7 Impressions: Knee X-Ray 11/10/16 14:12 IMPRESSION: SATISFACTORY POSTOPERATIVE LEFT KNEE. Status: Imported from PACS Plan Discharge Plan: Discharge home with home health nursing, home health physical therapy, wheeled walker, bedside commode. Visiting nurse service to change left knee picot dressing on postop day 7 and replaced with an OpSite. Follow-up with Dr. Arreola in the [facility] for surgery in 2 weeks for staple removal.
[2016-11-12 08:16] VITALS: BP 125/60
[2016-11-12] MEDS: SENNOSIDES/DOCUSATE 8.6-50 MG 1 EACH TABLET PO SCH (09:36)
[2016-11-12] MEDS: PRENATAL VITAMIN W-O CA NO5/FE FUMARATE/FA CAPSULE PO SCH (09:37)
[2016-11-12] MEDS: OXYCODONE HCL SR 40 MG TABLET PO SCH (09:37)
[2016-11-15] MEDS ORDERED: WARFARIN SODIUM 4 MG TABLET PO SCH (22:00)
== END 2016-11-12 14:55 | disposition home health service (06) | DRG 470 ==
LOC: INOR 09:06 → 4S 15:55
PROVIDERS: ADMIT Orthopaedic Surgery; ATTEND Orthopaedic Surgery
PROC: 0SRD0J9 Replacement of Left Knee Joint with Synthetic Substitute, Cemented, Open Approach (ICD-10-PCS; principal; 2016-11-10 11:15)
DX: M17.12 Unilateral primary osteoarthritis, left knee (principal); D51.3 Other dietary vitamin B12 deficiency anemia; F17.210 Nicotine dependence, cigarettes, uncomplicated; Z79.01 Long term (current) use of anticoagulants; Z79.899 Other long term (current) drug therapy; Z98.84 Bariatric surgery status
CPT/HCPCS: 01402; 36415; 80048; 85027; 85610; 85730; 88305; 88311; 94799; C9290; J0131; J0690; J1200; J1650; J1741; J2060; J2250; J2270; J2405; J2704; J3010; J3370; J3490; J7050; J7060; S0119

== ENCOUNTER → 2017-09-02 | Outpatient (CLI) | payer OTHER ==
--- NOTE | 2017-09-02 10:38 | WOMENS IMAGING REPORT ---
EXAM DESCRIPTION: 3D SCREENING MAMMO BILAT COMPLETED DATE/TIME: 09/02/2017 9:55 am REASON FOR STUDY: SCREENING MAMMO Z12.31 ENCNTR SCREEN MAMMOGRAM FOR MALIGNANT NEOPLASM OF DMITRI COMPARISON: [id number] TECHNIQUE: Standard craniocaudal and mediolateral oblique views of each breast recorded using digita l acquisition and breast tomosynthesis. LIMITATIONS: None. FINDINGS: No masses, calcifications or architectural distortion. No areas of suspicion. Read with the assistance of CAD. .[facility] - R2 Cenova Version 1.3 .[facility] - R2 Cenova Version 1.3 .[facility] - R2 Cenova Version 2.4 .[facility] [place] - R2 Cenova Version 2.4 .[facility] - R2 R D Intern Version 9.2 IMPRESSION: NORMAL MAMMOGRAM. BIRADS 1. BREAST DENSITY: b. There are scattered areas of fibroglandular density. BIRAD: 1 NEGATIVE RECOMMENDATION: ROUTINE SCREENING COMMENT: The patient has been notified of the results by letter per SA requirements. Additional no tification policies are in place for contacting patient with suspicious or incomplete findings. Quality ID #225: The [employer] recommends an annual screening mammogram for women aged 40 years or over. This facility utilizes a reminder system to ensure that all patients receive reminder letters, and/or direct phone calls for appointments. This includes reminders for routine scr eening mammograms, diagnostic mammograms, or other Breast Imaging Interventions when appropriate. Th is patient will be placed in the appropriate reminder system. The [employer] (ACR) has developed recommendations for screening MRI of the breast s in certain patient populations, to be used in conjunction with mammography. Breast MRI surveillanc e may be appropriate for women with more than 20% lifetime risk of developing breast cancer as deter mined by genetic testing, significant family history of the disease, or history of mantle radiation f or Hodgkins Disease. ACR Practice Guidelines 2008. D[employer] Technology DBT is a type of tomographic mammography. With conventional mammography, overlapping breast tissue ma y make lesions difficult to detect, even with good compression. DBT uses an x-ray tube that rotates a round the breast, taking images at different angles. These images are then combined to create thin sl ices of the breast that the radiologist can view as a 3D reconstruction. The [employer] unit can perform full-field digital mammograms (2D imaging); or DBT (3D imaging); or both, in a combination mode that quickly performs both the mammogram and the tomosynthesis scan while the breast is still compressed. PQRS 6045F: Fluoroscopic imaging is not utilized for breast tomosynthesis. TECHNICAL DOCUMENTATION: FINDING NUMBER: (1) ASSESSMENT: (1) JOB ID: [id number] [employer]- All Rights Reserved Reading location - IP/workstation name: [email or web address]
== END ==
LOC: WI 08:12
PROVIDERS: ATTEND Internal Medicine Medical Oncology
DX: Z12.31 Encounter for screening mammogram for malignant neoplasm of breast (principal)
CPT/HCPCS: 77063; 77067

== ENCOUNTER → 2019-06-24 | Outpatient (CLI) | payer OTHER ==
[2019-06-24 16:35] LABS: ABSOLUTE EOSINOPHILS # (AUTO) 0.2 10^3/uL (0.0-0.6); ABSOLUTE LYMPHOCYTES (AUTO) 2.5 10^3/uL (0.5-4.7); ABSOLUTE MONOCYTES (AUTO) 0.3 10^3/uL (0.1-1.4); ABSOLUTE NEUT (AUTO) 3.6 10^3/uL (1.7-8.2); BASOPHILS % (AUTO) 0.4 % (0-2); EOSINOPHILS % (AUTO) 3.1 % (0-6); HEMATOCRIT 39.1 % (36.0-47.0); HEMOGLOBIN 13.2 g/dL (12.0-15.5); LYMPHOCYTES % (AUTO) 37.5 % (13-45); MEAN CORPUSCULAR HEMOGLOBIN 32.4 pg (27.0-33.4); MEAN CORPUSCULAR HGB CONC 33.9 g/dL (32.0-36.0); MEAN CORPUSCULAR VOLUME 96 fl (80-97); MONOCYTES % (AUTO) 4.9 % (3-13); PLATELET COUNT 201 10^3/uL (150-450); RED BLOOD COUNT 4.08 10^6/uL (3.72-5.28); RED CELL DISTRIBUTION WIDTH 13.9 % (11.5-14.0); SEGMENTED NEUTROPHILS % (AUTO) 54.1 % (42-78); TOTAL CELLS COUNTED % (AUTO) 100 %; WHITE BLOOD COUNT 6.6 10^3/uL (4.0-10.5)
[2019-06-24 16:59] LABS: ALBUMIN 4.5 g/dL (3.5-5.0); ALKALINE PHOSPHATASE 73 U/L (38-126); ANION GAP 8 (5-19); ASPARTATE AMINO TRANSFERASE 40 U/L (14-36); BILIRUBIN,TOTAL 0.3 mg/dL (0.2-1.3); BLOOD UREA NITROGEN 9 mg/dL (7-20); CALCIUM 9.5 mg/dL (8.4-10.2); CARBON DIOXIDE 31 mmol/L (22-30); CHLORIDE 100 mmol/L (98-107); GLUCOSE 131 mg/dL (75-110); POTASSIUM 4.9 mmol/L (3.6-5.0); TOTAL PROTEIN 7.7 g/dL (6.3-8.2)
[2019-06-24 17:11] LABS: FREE T4 (FREE THYROXINE) 0.79 ng/dL (0.78-2.19)
[2019-06-24 17:25] LABS: THYROID STIMULATING HORMONE 1.28 uIU/mL (0.47-4.68)
[2019-06-24 18:08] LABS: FOLATE > 20.00 ng/mL (>2.76)
== END ==
LOC: OD 14:57
PROVIDERS: ATTEND Psychiatry & Neurology Psychiatry
DX: F33.0 Major depressive disorder, recurrent, mild (principal)
CPT/HCPCS: 36415; 80053; 82607; 82652; 82746; 84439; 84443; 85025

== ENCOUNTER → 2019-12-22 | Outpatient (CLI) | payer OTHER ==
--- NOTE | 2019-12-22 11:47 | WOMENS IMAGING REPORT ---
EXAM DESCRIPTION: 3D SCREENING MAMMO BILAT IMAGES COMPLETED DATE/TIME: 12/22/2019 11:22 am REASON FOR STUDY: Z12.31 ENCOUNTER FOR SCREENING MAMMOGRAM FOR MALIGNANT NEOPLASM OF BREAST Z12.31 ENCNTR SCREEN MAMMOGRAM FOR MALIGNANT NEOPLASM OF DMITRI COMPARISON: Priors dating back to 2014. EXAM PARAMETERS: Views: Standard craniocaudal and mediolateral oblique views of each breast recorded using digital acquisition and breast tomosynthesis. Read with the assistance of CAD. .[facility] - R2 Thread Spinner Version 9.2 LIMITATIONS: None. FINDINGS: No suspicious masses, suspicious calcifications or architectural distortion. No areas of c oncern. IMPRESSION: NEGATIVE MAMMOGRAM. BIRADS 1. BREAST DENSITY: b. There are scattered areas of fibroglandular density. BIRAD: ASSESSMENT: 1 NEGATIVE RECOMMENDATION: ROUTINE SCREENING COMMENT: The patient has been notified of the results by letter per MQSA requirements. Additional no tification policies are in place for contacting patient with suspicious or incomplete findings. Quality ID #225: The [employer] recommends an annual screening mammogram for women aged 40 years or over. This facility utilizes a reminder system to ensure that all patients receive reminder letters, and/or direct phone calls for appointments. This includes reminders for routine scr eening mammograms, diagnostic mammograms, or other Breast Imaging Interventions when appropriate. Th is patient will be placed in the appropriate reminder system. TECHNICAL DOCUMENTATION: FINDING NUMBER: (1) ASSESSMENT: (1) JOB ID: [id number] [employer]- All Rights Reserved Reading location - IP/workstation name: [email or web address]
== END ==
LOC: WI 10:52
PROVIDERS: ATTEND Physician Assistant
DX: Z12.31 Encounter for screening mammogram for malignant neoplasm of breast (principal)
CPT/HCPCS: 77063; 77067